=== PATIENT | male | born 1970 | race Caucasian/White ===

== ENCOUNTER 2020-09-22 14:52 | Emergency (ER) | payer OTHER ==
[2020-09-22 15:03] VITALS: TEMP 98.5; BMI 28.1
[2020-09-22] MEDS ORDERED: diphenhydrAMINE HCL 25 MG CAPSULE (FP) PO ONE ×2 (15:31→15:42)
[2020-09-22 17:23] VITALS: BP 145/90; PULSE 61
== END 2020-09-22 17:24 | disposition home or self-care (01) ==
LOC: JER 14:52
DX: T63.441A Toxic effect of venom of bees, accidental (unintentional), initial encounter (principal); Z91.030 Bee allergy status
CPT/HCPCS: 99283-25

== ENCOUNTER 2021-04-09 16:44 | Emergency (ER) | payer OTHER ==
[2021-04-09 17:07] VITALS: BP 137/88; PULSE 77; TEMP 97.8; BMI 27.5
== END 2021-04-09 20:59 ==
LOC: JERFT 16:44
PROC: 0HQJXZZ Repair Left Upper Leg Skin, External Approach (ICD-10-PCS; principal; 2021-04-09)
DX: S81.012A Laceration without foreign body, left knee, initial encounter (principal); W25.XXXA Contact with sharp glass, initial encounter
CPT/HCPCS: 73562-TC-LT-FY; 99283-25

== ENCOUNTER 2023-04-13 15:11 | Emergency (ER) | payer OTHER ==
[2023-04-13 15:16] VITALS: BP 136/89; PULSE 74; RESP 18; TEMP 97; BMI 25.8
[2023-04-13] MEDS ORDERED: LIDOCAINE 4% PATCH TP ONE ×2 (18:31→18:35)
[2023-04-13] MEDS ORDERED: ACETAMINOPHEN 500 MG TABLET (FP) PO ONE (18:31)
[2023-04-13] MEDS ORDERED: KETOROLAC TROMETHAMINE 30 MG/1 ML VIAL IM ONE (18:31)
[2023-04-13] MEDS ORDERED: CYCLOBENZAPRINE HCL 5 MG TABLET PO ONE (18:32)
[2023-04-13] MEDS ORDERED: ACETAMINOPHEN 500 MG TABLET (FP) ONE (18:35)
[2023-04-13] MEDS ORDERED: CYCLOBENZAPRINE HCL 10 MG TABLET (FP) ONE (18:35)
[2023-04-13] MEDS ORDERED: KETOROLAC TROMETHAMINE 30 MG/1 ML VIAL ONE (18:35)
[2023-04-13] MEDS ORDERED: LIDOCAINE PATCH REMOVAL MC SCH (22:00)
== END 2023-04-13 21:15 | disposition home or self-care (01) ==
LOC: JERFT 15:11
PROC: 3E0233Z Introduction of Anti-inflammatory into Muscle, Percutaneous Approach (ICD-10-PCS; principal; 2023-04-13)
DX: M54.50 Low back pain, unspecified (principal); M25.562 Pain in left knee; X50.0XXA Overexertion from strenuous movement or load, initial encounter; Y99.0 Civilian activity done for income or pay
CPT/HCPCS: 72100-TC-FY; 73560-TC-LT-FY; 99284-25